=== PATIENT | female | born 1985 | race African-American/Black ===

== ENCOUNTER 2016-11-07 22:30 | Emergency (ER) | payer OTHER ==
[~2016-11-07] VITALS: Ht 165.1 cm; Wt 98.4 kg
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
[2016-11-08 00:48] LABS: ABSOLUTE BASOPHIL COUNT 0.1 /CUMM (0.0-0.2); ABSOLUTE EOSINOPHIL COUNT 0.1 /CUMM (0.0-0.7); ABSOLUTE GRANULOCYTE CT 7.1 /CUMM (1.4-6.5); ABSOLUTE LYMPH COUNT 3.4 /CUMM (1.2-3.4); ABSOLUTE MONOCYTE COUNT 0.6 /CUMM (0.10-0.60); BASOPHIL % 0.5 % (0.0-2.0); HEMATOCRIT 49.2 % (37-47); MEAN CORPUSCULAR HGB 28.2 PG (27.0-31.0); MEAN CORPUSCULAR HGB CONC 33.8 G/DL (33.0-37.0); MEAN CORPUSCULAR VOLUME 83.5 FL (81.0-99.0); PLATELET COUNT 310 /CUMM (130-400); RBC DISTRIBUTION WIDTH 14.3 % (11.5-14.5); RED BLOOD CELL CT 5.89 /CUMM (4.20-5.40); WHITE BLOOD CELL COUNT 11.3 /CUMM (4.8-10.8)
[2016-11-08 00:49] LABS: GRANULOCYTE % 62.8 % (42.2-75.2)
[2016-11-08] MEDS ORDERED: ZANTAC150 M1 PO (06:46)
[2016-11-08] MEDS ORDERED: GLUCOPHAGE1000 M1 PO (06:46)
[2016-11-08] MEDS ORDERED: LISINOPRIL10 M1 PO (06:46)
[2016-11-08 07:00] VITALS: BP 128/78
== END 2016-11-08 07:34 ==
LOC: ERH 22:30
PROVIDERS: Emergency Medicine
DX: Z76.0 Encounter for issue of repeat prescription (principal); Z20.6 Contact with and (suspected) exposure to human immunodeficiency virus [HIV]; M19.072 Primary osteoarthritis, left ankle and foot
CPT/HCPCS: 87389; 87491; 87591; J0456; J0696

== ENCOUNTER 2017-03-15 00:15 | Emergency (ER) | payer OTHER ==
[~2017-03-15 00:15] MED LIST: GLUCOPHAGE1000 M1 PO; LISINOPRIL10 M1 PO; ZANTAC150 M1 PO
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
--- NOTE | 2017-03-15 04:38 | RADIOLOGY REPORT ---
EXAMINATION: XR RIGHT ELBOW, RIGHT WRIST CLINICAL INFORMATION: Fall 3 days ago COMPARISON: None TECHNIQUE: 3 views of the right elbow. 3 views of the right wrist. FINDINGS: Right elbow: Osseous alignment is anatomic. There is cortical irregularity of the coronoid process of the ulna, consistent with fracture in the setting of recent trauma. An associated joint effusion is noted. Right wrist: There is a mildly displaced comminuted fracture of the scaphoid through the waist. Articular alignment throughout the wrist appears preserved. There is soft tissue swelling about the wrist. IMPRESSION: 1. Right elbow: Coronoid process fracture of the ulna. 2. Right wrist: Comminuted scaphoid fracture.
[2017-03-15 06:27] VITALS: BP 117/59
== END 2017-03-15 07:00 ==
LOC: ERH 00:15
DX: S62.001A Unspecified fracture of navicular [scaphoid] bone of right wrist, initial encounter for closed fracture (principal); S52.041A Displaced fracture of coronoid process of right ulna, initial encounter for closed fracture; F10.10 Alcohol abuse, uncomplicated; X58.XXXA Exposure to other specified factors, initial encounter; Y93.9 Activity, unspecified; Y92.9 Unspecified place or not applicable
CPT/HCPCS: 73080-RT; 73110-RT; 81025; G0480